=== PATIENT | female | born 1975 | race Caucasian/White ===

== ENCOUNTER → 2018-10-11 | Outpatient (CLI) | payer OTHER ==
--- NOTE | 2018-10-12 09:49 | KCIC ---
EXAM: PA, oblique and lateral views of the left wrist DATE: 10/11/2018 12:00 AM INDICATION: Left wrist pain-5 days COMPARISON: No Prior FINDINGS: No evidence of acute fracture or dislocation. Joint spaces are preserved without significant degenerative/proliferative change. Mild soft tissue swelling about the ulnar styloid. IMPRESSION: 1. Soft tissue swelling about the ulnar styloid without evidence for acute fracture or dislocation. Electronically signed by: Cotnreras Hurtado MD (10/11/2018 5:01 PM) [id number]
== END | disposition home or self-care (01) ==
LOC: KCIC 15:36
PROVIDERS: ATTEND Nurse Practitioner Family
DX: M25.432 Effusion, left wrist (principal)
CPT/HCPCS: 73110